=== PATIENT | male | born 1955 | race Caucasian/White ===

== ENCOUNTER → 2020-08-18 | Outpatient (CLI) | payer OTHER ==
[~2020-08-18] MED LIST: ADMELOG100 UNIT/1 SQ; BACTRIM DS TAB1 EACH PO; BASAGLAR K100 UNIT/1 SQ; BUMETANIDE2 MG PO; BUSPIRONE HCL7.5 MG PO; CETIRIZINE HCL10 MG PO; CHANTIX1 MG PO; ECOTRIN81 MG PO; ELIQUIS 2.5 MG2.5 MG PO; FOLIC ACID 1 MG1 MG PO; K-DUR TAB 10 M10 MEQ PO; LASIX 40 MG TAB40 MG PO; LASIX20 MG PO; LASIX40 MG PO; LIPITOR40 MG PO; LISINOPRIL20 MG PO; MOBIC15 MG PO; NORCO 5-325 TA1 EACH PO; NORVASC 5 MG TAB5 MG PO; OMEPRAZOLE20 MG PO; PROAIR HFA8.5 GM INH; TOPROL XL50 MG PO; VITAMIN B-125000 MC2 PO
== END ==
LOC: WCC 10:05
DX: E11.628 Type 2 diabetes mellitus with other skin complications (principal); E11.610 Type 2 diabetes mellitus with diabetic neuropathic arthropathy; E11.65 Type 2 diabetes mellitus with hyperglycemia; I50.20 Unspecified systolic (congestive) heart failure; I11.0 Hypertensive heart disease with heart failure; Z79.4 Long term (current) use of insulin; Z72.0 Tobacco use; J44.9 Chronic obstructive pulmonary disease, unspecified
CPT/HCPCS: G0463

== ENCOUNTER → 2020-10-09 | Outpatient (CLI) | payer OTHER | LOC: WCC 10:41 | DX: E11.622 Type 2 diabetes mellitus with other skin ulcer (principal); L97.519 Non-pressure chronic ulcer of other part of right foot with unspecified severity; J44.9 Chronic obstructive pulmonary disease, unspecified; I11.0 Hypertensive heart disease with heart failure; I50.9 Heart failure, unspecified; E11.40 Type 2 diabetes mellitus with diabetic neuropathy, unspecified; I25.10 Atherosclerotic heart disease of native coronary artery without angina pectoris ==

== ENCOUNTER 2020-11-14 18:33 | Emergency (ER) | payer OTHER ==
[~2020-11-14 18:33] MED LIST changes: -BACTRIM DS TAB1 EACH PO; -CETIRIZINE HCL10 MG PO; -ECOTRIN81 MG PO; -LASIX 40 MG TAB40 MG PO; -LIPITOR40 MG PO; -LISINOPRIL20 MG PO; -OMEPRAZOLE20 MG PO
[2020-11-14 19:41] LABS: BUN/CREATININE RATIO 22 (0-10)
[2020-11-14 20:00] LABS: HEMOGLOBIN 13.1 gm/dl (14.0-17.5); RED BLOOD COUNT 4.03 M/UL (4.20-5.50); WHITE BLOOD COUNT 7.1 K/UL (4.5-11.0)
== END 2020-11-14 21:00 | disposition home or self-care (01) ==
LOC: ER1 18:33
PROVIDERS: Emergency Medicine
DX: D69.6 Thrombocytopenia, unspecified (principal); I10 Essential (primary) hypertension; E11.9 Type 2 diabetes mellitus without complications; Z79.899 Other long term (current) drug therapy; F17.200 Nicotine dependence, unspecified, uncomplicated
CPT/HCPCS: 71045; 80053; 82550; 82553; 82962; 83605; 83735; 83874; 83880; 84484; 85025; 85610; 85730; 87040; 93005; 96374; 99285

== ENCOUNTER 2021-01-18 02:22 | Inpatient (IN) | payer OTHER ==
[~2021-01-18] VITALS: Ht 170.2 cm; Wt 77.1 kg
[2021-01-18 03:28] LABS: HEMOGLOBIN 13.6 gm/dl (14.0-17.5); RED BLOOD COUNT 4.29 M/UL (4.20-5.50); WHITE BLOOD COUNT 10.6 K/UL (4.5-11.0)
[2021-01-18 03:51] LABS: BUN/CREATININE RATIO 11 (0-10)
[2021-01-18] MEDS ORDERED: LASIX 40 MG TAB40 MG PO (08:47)
[2021-01-18] MEDS ORDERED: CETIRIZINE HCL10 MG PO (08:49)
[2021-01-18] MEDS ORDERED: OMEPRAZOLE20 MG PO (08:50)
[2021-01-18] MEDS ORDERED: LISINOPRIL20 MG PO (08:51)
[2021-01-19 04:59] LABS: HEMOGLOBIN 13.7 gm/dl (14.0-17.5); RED BLOOD COUNT 4.36 M/UL (4.20-5.50)
[2021-01-19 05:03] LABS: WHITE BLOOD COUNT 7.8 K/UL (4.5-11.0)
[2021-01-19 05:18] LABS: BUN/CREATININE RATIO 13 (0-10)
[2021-01-19] MEDS ORDERED: ECOTRIN81 MG PO (09:23)
[2021-01-19] MEDS ORDERED: LIPITOR40 MG PO (09:23)
[2021-01-19] MEDS ORDERED: BACTRIM DS TAB1 EACH PO (09:23)
== END 2021-01-19 13:18 | disposition home or self-care (01) | DRG 300 ==
LOC: ER1 02:22 → CDU 04:54 → M/S 04:54
PROVIDERS: Emergency Medicine; Internal Medicine; ADMIT Internal Medicine
DX: E11.52 Type 2 diabetes mellitus with diabetic peripheral angiopathy with gangrene (principal); M86.8X6 Other osteomyelitis, lower leg; L03.115 Cellulitis of right lower limb; I50.32 Chronic diastolic (congestive) heart failure; E87.1 Hypo-osmolality and hyponatremia; Z20.822 Contact with and (suspected) exposure to COVID-19; E11.69 Type 2 diabetes mellitus with other specified complication; I11.0 Hypertensive heart disease with heart failure; K21.9 Gastro-esophageal reflux disease without esophagitis; J44.9 Chronic obstructive pulmonary disease, unspecified; E11.621 Type 2 diabetes mellitus with foot ulcer; L97.519 Non-pressure chronic ulcer of other part of right foot with unspecified severity; D69.6 Thrombocytopenia, unspecified; F17.210 Nicotine dependence, cigarettes, uncomplicated; I25.10 Atherosclerotic heart disease of native coronary artery without angina pectoris; Z79.4 Long term (current) use of insulin; Z95.5 Presence of coronary angioplasty implant and graft; Z98.42 Cataract extraction status, left eye; Z98.41 Cataract extraction status, right eye; Z90.49 Acquired absence of other specified parts of digestive tract; Z80.42 Family history of malignant neoplasm of prostate
CPT/HCPCS: 36415; 71045; 73630; 73718; 80053; 82962; 83605; 85025; 85652; 86140; 87040; 93005; 93925; 96374; 99284; J2543; J3370; J7030; J7070; U0002

== ENCOUNTER 2021-03-27 14:45 | Inpatient (IN) | payer OTHER ==
[~2021-03-27] VITALS: Ht 167.6 cm; Wt 70.8 kg
[~2021-03-27 14:45] MED LIST changes: +BACTRIM DS TAB1 EACH PO; -BASAGLAR K100 UNIT/1 SQ; +CETIRIZINE HCL10 MG PO; +ECOTRIN81 MG PO; +LIPITOR40 MG PO; +LISINOPRIL20 MG PO; +OMEPRAZOLE20 MG PO; -TOPROL XL50 MG PO; -VITAMIN B-125000 MC2 PO
[2021-03-27 15:53] LABS: HEMOGLOBIN 12.5 gm/dl (14.0-17.5); RED BLOOD COUNT 4.18 M/UL (4.20-5.50); WHITE BLOOD COUNT 7.2 K/UL (4.5-11.0)
[2021-03-28 04:09] LABS: HEMOGLOBIN 11.6 gm/dl (14.0-17.5); RED BLOOD COUNT 3.92 M/UL (4.20-5.50); WHITE BLOOD COUNT 5.4 K/UL (4.5-11.0)
[2021-03-28 04:48] LABS: BUN/CREATININE RATIO 19 (0-10)
[2021-03-28] MEDS ORDERED: VITAMIN B-121000 MCG PO (07:15)
[2021-03-28] MEDS ORDERED: TOPROL XL100 MG PO (07:16)
[2021-03-28] MEDS ORDERED: BASAGLAR K100 UNIT/1 SQ (07:16)
[2021-03-28] MEDS ORDERED: LASIX 40 MG TAB40 MG PO (08:47)
[2021-03-28] MEDS ORDERED: PROAIR HFA8.5 GM INH (17:00)
[2021-03-28] MEDS ORDERED: ATORVASTATIN CA40 MG PO (17:02)
[2021-03-28] MEDS ORDERED: MUPIROCIN22 GM TOP (17:06)
[2021-03-28] MEDS ORDERED: PROTONIX40 MG PO (17:09)
[2021-03-28] MEDS ORDERED: IPRAT-ALBUT 0.5-3 ML INH (17:12)
[2021-03-29 03:11] LABS: HEMOGLOBIN 11.8 gm/dl (14.0-17.5); RED BLOOD COUNT 3.96 M/UL (4.20-5.50)
[2021-03-29 03:15] LABS: WHITE BLOOD COUNT 7.3 K/UL (4.5-11.0)
--- NOTE | 2021-03-31 11:40 | NUR ---
PT GOT OUT OF BED WITH BED ALARM ON AND FELL INTO THE CHAIR THEN INTO THE FLOOR. DR DE PAZ HERE AT TIME OF INCIDENCE. NO NEW ORDERS REC'D. NO INJURIES NOTED. PT ALERT AND ORIENTED. BED LINENS CHANGED AND PT HELPED BACK TO BED
[2021-03-31] MEDS ORDERED: LOPRESSOR 50 MG50 MG PO (16:50)
[2021-03-31] MEDS ORDERED: ASPIRIN EC81 MG PO (16:50)
[2021-03-31] MEDS ORDERED: DECADRON6 MG PO (16:53)
== END 2021-03-31 19:48 | disposition home or self-care (01) | DRG 177 ==
LOC: ER1 14:45 → PROG CARE 18:03 → CDU 18:03 → PROG CARE 03-28 15:15
PROVIDERS: Physician Assistant; Physician Assistant Medical; ADMIT Internal Medicine
PROC: 8E0ZXY6 Isolation (ICD-10-PCS; principal; 2021-03-27)
PROC: XW033E5 Introduction of Remdesivir Anti-infective into Peripheral Vein, Percutaneous Approach, New Technology Group 5 (ICD-10-PCS; 2021-03-27)
PROC: 3E0333Z Introduction of Anti-inflammatory into Peripheral Vein, Percutaneous Approach (ICD-10-PCS; 2021-03-27)
PROC: B24BZZ4 Ultrasonography of Heart with Aorta, Transesophageal (ICD-10-PCS; 2021-03-28)
PROC: 5A0935A Assistance with Respiratory Ventilation, Less than 24 Consecutive Hours, High Flow/Velocity Cannula (ICD-10-PCS; 2021-03-28)
DX: U07.1 COVID-19 (principal); J12.82 Pneumonia due to coronavirus disease 2019; I21.A1 Myocardial infarction type 2; J96.01 Acute respiratory failure with hypoxia; E87.2 Acidosis; I50.32 Chronic diastolic (congestive) heart failure; N17.9 Acute kidney failure, unspecified; J44.9 Chronic obstructive pulmonary disease, unspecified; E78.5 Hyperlipidemia, unspecified; F17.210 Nicotine dependence, cigarettes, uncomplicated; I25.10 Atherosclerotic heart disease of native coronary artery without angina pectoris; I73.9 Peripheral vascular disease, unspecified; I11.0 Hypertensive heart disease with heart failure; E11.65 Type 2 diabetes mellitus with hyperglycemia; D69.6 Thrombocytopenia, unspecified; K21.9 Gastro-esophageal reflux disease without esophagitis; Z98.42 Cataract extraction status, left eye; Z98.41 Cataract extraction status, right eye; Z80.42 Family history of malignant neoplasm of prostate; Z79.4 Long term (current) use of insulin; Z95.5 Presence of coronary angioplasty implant and graft
CPT/HCPCS: ECHO; 36415; 36600; 70450; 71045; 80048; 80053; 80061; 81001; 82009; 82550; 82553; 82803; 82962; 83036; 83605; 83874; 84484; 85025; 85610; 85730; 87040; 93005; 93306; 94640; 94664; 94760; 96374; 96375; 99285; G0378; J0696; J1100; J1650; J3486; J7030; U0002

== ENCOUNTER 2021-04-18 16:18 | Emergency (ER) | payer OTHER ==
[~2021-04-18 16:18] MED LIST changes: +ASPIRIN EC81 MG PO; +ATORVASTATIN CA40 MG PO; +BASAGLAR K100 UNIT/1 SQ; +DECADRON6 MG PO; +IPRAT-ALBUT 0.5-3 ML INH; +LASIX 40 MG TAB40 MG PO; +LOPRESSOR 50 MG50 MG PO; +MUPIROCIN22 GM TOP; +PROTONIX40 MG PO; +TOPROL XL100 MG PO; +VITAMIN B-121000 MCG PO
[2021-04-18 18:42] LABS: RED BLOOD COUNT 4.45 M/UL (4.20-5.50); WHITE BLOOD COUNT 7.2 K/UL (4.5-11.0)
[2021-04-18 19:03] LABS: BUN/CREATININE RATIO 12 (0-10)
== END 2021-04-18 23:20 | disposition home or self-care (01) ==
LOC: ER1 16:18
PROVIDERS: Nurse Practitioner
DX: R06.02 Shortness of breath (principal); I11.0 Hypertensive heart disease with heart failure; I50.9 Heart failure, unspecified; E11.9 Type 2 diabetes mellitus without complications; Z79.4 Long term (current) use of insulin; F17.210 Nicotine dependence, cigarettes, uncomplicated; Z79.899 Other long term (current) drug therapy
CPT/HCPCS: 71045; 80053; 82550; 82553; 83874; 83880; 84484; 85025; 99285

== ENCOUNTER 2021-04-22 05:51 | Emergency (ER) | payer OTHER ==
[2021-04-22 06:29] LABS: HEMOGLOBIN 12.3 gm/dl (14.0-17.5); RED BLOOD COUNT 4.38 M/UL (4.20-5.50); WHITE BLOOD COUNT 6.8 K/UL (4.5-11.0)
[2021-04-22] MEDS ORDERED: MEDROL4 MG PO (09:05)
== END 2021-04-22 11:05 | disposition home or self-care (01) ==
LOC: ER1 05:51
PROVIDERS: Physician Assistant
DX: J44.9 Chronic obstructive pulmonary disease, unspecified (principal); I11.0 Hypertensive heart disease with heart failure; I50.9 Heart failure, unspecified; E11.65 Type 2 diabetes mellitus with hyperglycemia; I25.2 Old myocardial infarction; Z20.822 Contact with and (suspected) exposure to COVID-19
CPT/HCPCS: 36600; 71045; 80053; 82550; 82553; 82803; 82962; 83874; 83880; 84484; 85025; 93005; 96374; 96375; 99285; J2930; U0002

== ENCOUNTER 2021-05-07 21:42 | Inpatient (IN) | payer OTHER ==
[~2021-05-07] VITALS: Ht 170.2 cm; Wt 72.6 kg
[~2021-05-07 21:42] MED LIST changes: +MEDROL4 MG PO
[2021-05-07 22:14] LABS: HEMOGLOBIN 13.6 gm/dl (14.0-17.5); RED BLOOD COUNT 4.6 M/UL (4.20-5.50); WHITE BLOOD COUNT 7.5 K/UL (4.5-11.0)
[2021-05-08 09:44] LABS: HEMOGLOBIN 12.7 gm/dl (14.0-17.5); RED BLOOD COUNT 4.28 M/UL (4.20-5.50); WHITE BLOOD COUNT 9.1 K/UL (4.5-11.0)
[2021-05-08] MEDS ORDERED: SULFAMETHOXAZO1 EACH PO (09:57)
[2021-05-08] MEDS ORDERED: KLONOPIN TAB 00.5 MG PO (09:58)
[2021-05-08] MEDS ORDERED: BACTROBAN OINT22 GM TOP (09:59)
[2021-05-08] MEDS ORDERED: MEGESTROL400 MG/12 PO (09:59)
[2021-05-08] MEDS ORDERED: LANTUS SOL100 UNIT/1 SC (12:04)
[2021-05-08] MEDS ORDERED: HUMULIN 70100 UNIT/2 SC (12:05)
[2021-05-09 08:09] LABS: HEMOGLOBIN 12.7 gm/dl (14.0-17.5); RED BLOOD COUNT 4.5 M/UL (4.20-5.50); WHITE BLOOD COUNT 9.1 K/UL (4.5-11.0)
== END 2021-05-09 10:07 | disposition left against medical advice (07) | DRG 682 ==
LOC: ER1 21:42 → CDU 23:57 → MED SURG 4 05-08 08:00
PROVIDERS: Family Medicine; Internal Medicine; Internal Medicine Nephrology; ADMIT Internal Medicine
DX: N17.9 Acute kidney failure, unspecified (principal); I50.33 Acute on chronic diastolic (congestive) heart failure; I13.0 Hypertensive heart and chronic kidney disease with heart failure and stage 1 through stage 4 chronic kidney disease, or unspecified chronic kidney disease; E44.0 Moderate protein-calorie malnutrition; E11.40 Type 2 diabetes mellitus with diabetic neuropathy, unspecified; E11.51 Type 2 diabetes mellitus with diabetic peripheral angiopathy without gangrene; E11.22 Type 2 diabetes mellitus with diabetic chronic kidney disease; K21.9 Gastro-esophageal reflux disease without esophagitis; I25.10 Atherosclerotic heart disease of native coronary artery without angina pectoris; I08.1 Rheumatic disorders of both mitral and tricuspid valves; F17.210 Nicotine dependence, cigarettes, uncomplicated; E78.5 Hyperlipidemia, unspecified; F19.10 Other psychoactive substance abuse, uncomplicated; Z96.1 Presence of intraocular lens; D69.6 Thrombocytopenia, unspecified; N18.30 Chronic kidney disease, stage 3 unspecified; F15.10 Other stimulant abuse, uncomplicated; Z86.16 Personal history of COVID-19; I25.2 Old myocardial infarction; Z79.4 Long term (current) use of insulin; Z98.890 Other specified postprocedural states; Z80.42 Family history of malignant neoplasm of prostate; Z79.82 Long term (current) use of aspirin; Z98.42 Cataract extraction status, left eye; Z98.41 Cataract extraction status, right eye
CPT/HCPCS: 36600; 71045; 71250; 80048; 80053; 82550; 82553; 82803; 82962; 83036; 83605; 83735; 83874; 83880; 83970; 84100; 84439; 84443; 84484; 84550; 85025; 85027; 86140; 87040; 93005; 94640; 94664; 94760; 96374; 99285; C9113; G0378; J1650; J1940; J2930; U0002

== ENCOUNTER → 2021-06-01 | Outpatient (CLI) | payer OTHER ==
[~2021-06-01] MED LIST changes: +BACTROBAN OINT22 GM TOP; +HUMULIN 70100 UNIT/2 SC; +KLONOPIN TAB 00.5 MG PO; +LANTUS SOL100 UNIT/1 SC; +MEGESTROL400 MG/12 PO; +SULFAMETHOXAZO1 EACH PO
== END ==
LOC: KOH-I 05-31 14:00
DX: S81.809A Unspecified open wound, unspecified lower leg, initial encounter (principal); E11.51 Type 2 diabetes mellitus with diabetic peripheral angiopathy without gangrene; E11.621 Type 2 diabetes mellitus with foot ulcer; L97.509 Non-pressure chronic ulcer of other part of unspecified foot with unspecified severity
CPT/HCPCS: 93925

== ENCOUNTER → 2021-09-12 | Outpatient (CLI) | payer OTHER | LOC: WCC 07:20 | DX: E11.621 Type 2 diabetes mellitus with foot ulcer (principal); L97.419 Non-pressure chronic ulcer of right heel and midfoot with unspecified severity; I96 Gangrene, not elsewhere classified; E11.52 Type 2 diabetes mellitus with diabetic peripheral angiopathy with gangrene; I11.0 Hypertensive heart disease with heart failure; I50.9 Heart failure, unspecified; J44.9 Chronic obstructive pulmonary disease, unspecified; Z79.4 Long term (current) use of insulin; Z72.0 Tobacco use | CPT/HCPCS: G0463 ==